=== PATIENT | female | born 1935 | race Caucasian/White ===

== ENCOUNTER 2019-01-30 13:05 | Inpatient (IN) | payer MEDICARE, OTHER ==
[~2019-01-30] VITALS: Ht 160 cm; Wt 62.2 kg
[2019-01-30 13:59] LABS: BASOPHILS % (AUTO) 0 % (0-1); EOSINOPHILS # (AUTO) 0.05 x10^3/uL (0-0.4); EOSINOPHILS % (AUTO) 1 % (1-7); LYMPHOCYTES # (AUTO) 0.39 x10^3/uL (1-3.4); LYMPHOCYTES % (AUTO) 5 % (22-44); MD NO; MEAN CORPUSCULAR HEMOGLOBIN 29.1 pg (27.0-34.8); MEAN CORPUSCULAR HGB CONC 33.3 g/dL (32.4-35.8); MEAN CORPUSCULAR VOLUME 87.4 fL (80-100); MEAN PLATELET VOLUME 9.9 fL (7.4-10.4); MONOCYTES # (AUTO) 0.65 x10^3/uL (0.2-0.8); MONOCYTES % (AUTO) 8 % (2-9); NEUTROPHILS # (AUTO) 6.65 x10^3/uL (1.8-6.8); NEUTROPHILS % (AUTO) 86 % (42-75); PLATELET COUNT 154 x10^3/uL (130-400); RED BLOOD COUNT 3.88 x10^6/uL (3.82-5.3); RED CELL DISTRIBUTION WIDTH 16.4 % (9.6-15.2)
[2019-01-30] MEDS ORDERED: PLEASE ENTER ALLERGIES MC SCH (14:00)
[2019-01-30] MEDS ORDERED: MORPHINE SULFATE 4 MG/ML, 1ML IVPush PRN (14:00)
[2019-01-30] MEDS ORDERED: ONDANSETRON 2MG/ML, 2ML IVPush ONE (14:00)
[2019-01-30 14:06] LABS: ALANINE AMINOTRANSFERASE 47 U/L (12-78); ALBUMIN 3.6 g/dL (3.4-5.0); ANION GAP 9 mmol/L (5-15); CALCIUM 8.3 mg/dL (8.5-10.1); CHLORIDE 107 mmol/L (98-107); CREATININE 1.31 mg/dL (0.55-1.02)
[2019-01-30 14:11] LABS: ALKALINE PHOSPHATASE 101 U/L (45-117); BILIRUBIN,TOTAL 1.2 mg/dL (0.2-1.0); TOTAL PROTEIN 6.7 g/dL (6.4-8.2)
[2019-01-30] MEDS ORDERED: MORPHINE SULFATE 4 MG/ML, 1ML ONE (14:13)
[2019-01-30] MEDS ORDERED: ONDANSETRON 2MG/ML, 2ML ONE (14:13)
[2019-01-30 14:20] LABS: TROPONIN I 0.134 ng/mL (0.000-0.045)
[2019-01-30 14:23] LABS: INTERNATIONAL NORMALIZED RATIO 4.52 (0.93-1.1); PROTHROMBIN TIME 44.8 Seconds (9.6-11.5)
[2019-01-30] MEDS ORDERED: SODIUM CHLORIDE 0.9%, 500ML IVBOLUS ONE (14:30)
--- NOTE | 2019-01-30 14:34 | NUR ---
RETURN TO ROOM FROM ULTRASOUND. XRAY AT BEDSIDE. TO BE MEDICATED FOR PAIN
[2019-01-30] MEDS ORDERED: OMNIPAQUE 350 MG/ML, 100ML BOTTLE ONE (15:04)
[2019-01-30] MEDS ORDERED: FUROSEMIDE 40 MG/4 ML IV ONE (15:30)
[2019-01-30] MEDS ORDERED: CITA20TA6 PO (15:56)
[2019-01-30] MEDS ORDERED: CARB1TAB22 PO (15:56)
[2019-01-30] MEDS ORDERED: METO1TAB31 PO (15:56)
[2019-01-30] MEDS ORDERED: OXYB5TAB PO (15:56)
[2019-01-30] MEDS ORDERED: LEVO75TA5 PO (15:56)
[2019-01-30] MEDS ORDERED: NITR0.6T4 SL (15:56)
[2019-01-30] MEDS ORDERED: WARF7.5T46 PO (15:56)
[2019-01-30] MEDS ORDERED: CITA10TA4 PO (15:56)
[2019-01-30] MEDS ORDERED: ALPR0.254 PO (15:56)
--- NOTE | 2019-01-30 16:03 | NUR ---
SOME IMPROVEMENT IN PAIN SINCE MEDICATED. ONTO BEDPAN BUT UNABLE TO URINATE
[2019-01-30] MEDS ORDERED: ONDANSETRON 2MG/ML, 2ML IVPush PRN (16:30)
[2019-01-30] MEDS ORDERED: hydrALAzine 20 MG/ML, 1ML IVPush PRN (16:30)
[2019-01-30] MEDS ORDERED: TEMAZEPAM 15 MG CAPSULE PO PRN (16:30)
--- NOTE | 2019-01-30 16:30 | NUR ---
Break RN: Pt voided in bedpan. Urine collected & sent. Po fluids provided, daughter & pt updated on room assignment .
[2019-01-30 16:53] LABS: CULTURE INDICATED? YES; MICROSCOPIC INDICATED
--- NOTE | 2019-01-30 16:56 | NUR ---
REPORT TO KYLAH VALERA. PT TO BE TRANSPORTED TO FLOOR
[2019-01-30] MEDS: FUROSEMIDE 20 MG/2 ML IV SCH (17:00)
[2019-01-30] MEDS: PANTOPROZOLE 40MG TABLET PO SCH (20:44)
[2019-01-30 20:50] LABS: TROPONIN I 0.141 ng/mL (0.000-0.045)
[2019-01-30 20:58] VITALS: BP 100/55
[2019-01-31 02:38] LABS: BASOPHILS # (AUTO) 0.02 x10^3/uL (0-0.1); BASOPHILS % (AUTO) 0 % (0-1); EOSINOPHILS # (AUTO) 0.14 x10^3/uL (0-0.4); EOSINOPHILS % (AUTO) 2 % (1-7); LYMPHOCYTES # (AUTO) 0.74 x10^3/uL (1-3.4); LYMPHOCYTES % (AUTO) 10 % (22-44); MD NO; MEAN CORPUSCULAR HEMOGLOBIN 29.1 pg (27.0-34.8); MEAN CORPUSCULAR HGB CONC 33.4 g/dL (32.4-35.8); MEAN CORPUSCULAR VOLUME 87.3 fL (80-100); MEAN PLATELET VOLUME 9.6 fL (7.4-10.4); MONOCYTES # (AUTO) 1.11 x10^3/uL (0.2-0.8); MONOCYTES % (AUTO) 15 % (2-9); NEUTROPHILS # (AUTO) 5.34 x10^3/uL (1.8-6.8); NEUTROPHILS % (AUTO) 73 % (42-75); PLATELET COUNT 151 x10^3/uL (130-400); RED BLOOD COUNT 3.79 x10^6/uL (3.82-5.3); RED CELL DISTRIBUTION WIDTH 16.3 % (9.6-15.2)
[2019-01-31 02:47] LABS: INTERNATIONAL NORMALIZED RATIO 3.56 (0.93-1.1); PROTHROMBIN TIME 35.6 Seconds (9.6-11.5)
[2019-01-31 02:51] LABS: ALBUMIN 3.7 g/dL (3.4-5.0); ANION GAP 7 mmol/L (5-15); CALCIUM 8.3 mg/dL (8.5-10.1); CHLORIDE 108 mmol/L (98-107)
[2019-01-31 02:55] LABS: ALANINE AMINOTRANSFERASE 43 U/L (12-78); ALKALINE PHOSPHATASE 89 U/L (45-117); BILIRUBIN,TOTAL 0.9 mg/dL (0.2-1.0); CREATININE 1.55 mg/dL (0.55-1.02); TOTAL PROTEIN 6.2 g/dL (6.4-8.2)
[2019-01-31 02:57] LABS: TROPONIN I 0.147 ng/mL (0.000-0.045)
[2019-01-31 05:00] VITALS: BP 111/70
[2019-01-31 07:40] VITALS: BP 120/54
[2019-01-31] MEDS: POTASSIUM CHLORIDE 20 MEQ PACKET PO SCH (08:13)
[2019-01-31] MEDS: FUROSEMIDE 20 MG/2 ML IV SCH ×2 (08:13→17:54)
[2019-01-31] MEDS: PANTOPROZOLE 40MG TABLET PO SCH ×2 (08:13→20:57)
[2019-01-31] MEDS: CITALOPRAM 20 MG TABLET PO SCH (08:13)
[2019-01-31] MEDS: LEVOTHYROXINE 75 MCG TABLET PO SCH (08:14)
[2019-01-31] MEDS: CARBIDOPA/LEVODOPA 25 MG/100 MG TABLET PO SCH (08:14)
[2019-01-31] MEDS: OXYBUTYNIN CHLORIDE 5 MG TABLET PO SCH (08:14)
[2019-01-31] MEDS ORDERED: CITALOPRAM 10 MG TABLET PO SCH (09:00)
[2019-01-31] MEDS ORDERED: WARFARIN SODIUM 7.5 MG PO SCH (09:00)
[2019-01-31 13:59] VITALS: BP 101/63
[2019-01-31] MEDS: CEFTRIAXONE PMX 2GM/50ML 50 ML IV SCH (17:53)
[2019-01-31 18:04] VITALS: BP 111/64
[2019-01-31] MEDS: WARFARIN 3 MG TABLET PO-COUM SCH (18:16)
[2019-01-31 18:34] VITALS: BP 101/57
[2019-02-01 01:20] VITALS: BP 106/62
[2019-02-01] MEDS: ACETAMINOPHEN 325 MG TABLET PO PRN ×2 (01:26→16:56)
[2019-02-01 05:38] LABS: INTERNATIONAL NORMALIZED RATIO 3.43 (0.93-1.1); PROTHROMBIN TIME 34.3 Seconds (9.6-11.5)
[2019-02-01] MEDS: POTASSIUM CHLORIDE 20 MEQ PACKET PO SCH (08:57)
[2019-02-01] MEDS: FUROSEMIDE 20 MG/2 ML IV SCH ×2 (08:57→16:56)
[2019-02-01] MEDS: PANTOPROZOLE 40MG TABLET PO SCH ×2 (08:57→20:21)
[2019-02-01] MEDS: OXYBUTYNIN CHLORIDE 5 MG TABLET PO SCH (08:58)
[2019-02-01] MEDS: LEVOTHYROXINE 75 MCG TABLET PO SCH (08:58)
[2019-02-01] MEDS: CARBIDOPA/LEVODOPA 25 MG/100 MG TABLET PO SCH (08:58)
[2019-02-01] MEDS: CITALOPRAM 20 MG TABLET PO SCH (08:58)
[2019-02-01 09:08] VITALS: BP 130/74
[2019-02-01] MEDS ORDERED: GADOBUTROL 7.5 MMOL/7.5 ML PFS ONE (10:14)
[2019-02-01 13:53] VITALS: BP 105/61
[2019-02-01] MEDS: CEFTRIAXONE PMX 2GM/50ML 50 ML IV SCH (16:57)
[2019-02-01] MEDS: WARFARIN 3 MG TABLET PO-COUM SCH (18:15)
[2019-02-01 18:39] VITALS: BP 113/67
[2019-02-01 18:42] VITALS: BP 98/58
[2019-02-02 02:59] VITALS: BP 118/65
[2019-02-02 06:06] LABS: INTERNATIONAL NORMALIZED RATIO 4.18 (0.93-1.1); PROTHROMBIN TIME 41.5 Seconds (9.6-11.5)
[2019-02-02 09:10] VITALS: BP 107/60
[2019-02-02] MEDS: CITALOPRAM 20 MG TABLET PO SCH (09:13)
[2019-02-02] MEDS: LEVOTHYROXINE 75 MCG TABLET PO SCH (09:13)
[2019-02-02] MEDS: PANTOPROZOLE 40MG TABLET PO SCH ×2 (09:13→20:17)
[2019-02-02] MEDS: OXYBUTYNIN CHLORIDE 5 MG TABLET PO SCH (09:14)
[2019-02-02] MEDS: CARBIDOPA/LEVODOPA 25 MG/100 MG TABLET PO SCH (09:14)
[2019-02-02] MEDS ORDERED: REGADENOSON 0.4 MG/5 ML SYRINGE ONE (10:03)
[2019-02-02 12:27] VITALS: BP 109/66
[2019-02-02] MEDS: FUROSEMIDE 20 MG/2 ML IV SCH ×2 (13:08→17:33)
[2019-02-02] MEDS: POTASSIUM CHLORIDE 20 MEQ PACKET PO SCH (13:08)
[2019-02-02] MEDS: WARFARIN 3 MG TABLET PO-COUM SCH (16:52)
[2019-02-02] MEDS: CEFTRIAXONE PMX 2GM/50ML 50 ML IV SCH (17:32)
[2019-02-02 17:35] VITALS: BP 122/71
[2019-02-02 19:06] VITALS: BP 111/64
[2019-02-03 00:15] VITALS: BP 106/63
[2019-02-03 05:18] LABS: INTERNATIONAL NORMALIZED RATIO 4.01 (0.93-1.1); PROTHROMBIN TIME 39.9 Seconds (9.6-11.5)
[2019-02-03 05:24] LABS: ANION GAP 5 mmol/L (5-15); CALCIUM 8.3 mg/dL (8.5-10.1); CHLORIDE 101 mmol/L (98-107)
[2019-02-03 05:25] LABS: CREATININE 0.85 mg/dL (0.55-1.02)
[2019-02-03 05:30] LABS: BASOPHILS # (AUTO) 0.02 x10^3/uL (0-0.1); BASOPHILS % (AUTO) 1 % (0-1); EOSINOPHILS # (AUTO) 0.18 x10^3/uL (0-0.4); EOSINOPHILS % (AUTO) 5 % (1-7); LYMPHOCYTES # (AUTO) 0.66 x10^3/uL (1-3.4); LYMPHOCYTES % (AUTO) 18 % (22-44); MD NO; MEAN CORPUSCULAR HEMOGLOBIN 28.3 pg (27.0-34.8); MEAN CORPUSCULAR HGB CONC 32.1 g/dL (32.4-35.8); MEAN CORPUSCULAR VOLUME 88.1 fL (80-100); MEAN PLATELET VOLUME 9.9 fL (7.4-10.4); MONOCYTES # (AUTO) 0.54 x10^3/uL (0.2-0.8); MONOCYTES % (AUTO) 14 % (2-9); NEUTROPHILS # (AUTO) 2.37 x10^3/uL (1.8-6.8); NEUTROPHILS % (AUTO) 63 % (42-75); PLATELET COUNT 133 x10^3/uL (130-400); RED BLOOD COUNT 3.45 x10^6/uL (3.82-5.3); RED CELL DISTRIBUTION WIDTH 16.8 % (9.6-15.2)
[2019-02-03 08:53] VITALS: BP 116/72
[2019-02-03] MEDS: PANTOPROZOLE 40MG TABLET PO SCH (09:06)
[2019-02-03] MEDS: CITALOPRAM 20 MG TABLET PO SCH (09:06)
[2019-02-03] MEDS: LEVOTHYROXINE 75 MCG TABLET PO SCH (09:06)
[2019-02-03] MEDS: OXYBUTYNIN CHLORIDE 5 MG TABLET PO SCH (09:06)
[2019-02-03] MEDS: CARBIDOPA/LEVODOPA 25 MG/100 MG TABLET PO SCH (09:06)
[2019-02-03] MEDS: FUROSEMIDE 20 MG/2 ML IV SCH (09:06)
[2019-02-03] MEDS: POTASSIUM CHLORIDE 20 MEQ PACKET PO SCH (09:06)
[2019-02-03] MEDS ORDERED: PANT40TA5 PO (09:39)
[2019-02-03] MEDS ORDERED: ACET325T14 PO (09:39)
[2019-02-03] MEDS ORDERED: WARF3TAB PO-COUM (09:39)
[2019-02-03] MEDS ORDERED: FURO-93 PO (09:39)
[2019-02-03 12:35] VITALS: BP 94/61
== END 2019-02-03 15:31 | DRG 175 ==
LOC: ED 13:53 → SUATTDRO 15:41 → EDIP 16:24 → 5SO 17:12
PROVIDERS: ADMIT Internal Medicine; ATTEND Internal Medicine
DX: I26.99 Other pulmonary embolism without acute cor pulmonale (principal); I82.0 Budd-Chiari syndrome; I82.220 Acute embolism and thrombosis of inferior vena cava; I13.0 Hypertensive heart and chronic kidney disease with heart failure and stage 1 through stage 4 chronic kidney disease, or unspecified chronic kidney disease; I31.3 Pericardial effusion (noninflammatory); N39.0 Urinary tract infection, site not specified; B96.1 Klebsiella pneumoniae [K. pneumoniae] as the cause of diseases classified elsewhere; E89.0 Postprocedural hypothyroidism; F32.9 Major depressive disorder, single episode, unspecified; G20 Parkinson's disease; I08.1 Rheumatic disorders of both mitral and tricuspid valves; I45.81 Long QT syndrome; I48.91 Unspecified atrial fibrillation; I50.811 Acute right heart failure; N18.3 Chronic kidney disease, stage 3 (moderate); R32 Unspecified urinary incontinence; Z79.01 Long term (current) use of anticoagulants
CPT/HCPCS: 36415; 70553; 71045; 71275; 74177; 76700; 78452; 80048; 80053; 81001; 83690; 83735; 83880; 84100; 84443; 84484; 85025; 85610; 87040; 87077; 87086; 87186; 93005; 93017; 93306; 93970; 96374; 96375; 99285; A9585; G0378; J0696; J2405; J2785; Q9967; A9502; C9898; J1940; J7040

== ENCOUNTER 2019-02-24 02:12 | Inpatient (IN) | payer MEDICARE ==
[~2019-02-24] VITALS: Ht 160 cm; Wt 58.7 kg
[~2019-02-24 02:12] MED LIST: ACET325T14 PO; ALPR0.254 PO; CARB1TAB22 PO; CITA10TA4 PO; CITA20TA6 PO; FURO-93 PO; LEVO75TA5 PO; METO1TAB31 PO; NITR0.6T4 SL; OXYB5TAB PO; PANT40TA5 PO; WARF3TAB PO-COUM; WARF7.5T46 PO
--- NOTE | 2019-02-24 02:45 | NUR ---
BIBA. PT C/O SOB WITH COUGH AND ANXIETY. SPO2 96% WITH 5L MANUFACTURING AREA MANAGER. PT'S AOX4. RESPS EVEN AND UNLABORED. PT USING 3L/MIN OXY AT HOME. SINUS TACHY ON HOTBED LEVER OPERATOR RATE 100'S AT THIS TIME. EDMD AT BEDSIDE TO ASSESS. ALL MONITORS IN PLACE. CALL LIGHT WITHIN REACH. AWAITING ORDERS.
[2019-02-24] MEDS ORDERED: ASPIRIN 81 MG TABLET CHEW ONE (02:56)
[2019-02-24] MEDS ORDERED: SODIUM CHLORIDE FLUSH 10ML SYR IVF ONE (03:00)
[2019-02-24] MEDS ORDERED: ASPIRIN 81 MG TABLET CHEW PO ONE (03:00)
--- NOTE | 2019-02-24 03:21 | NUR ---
PT MEDICATED PER EMAR. PT TOLERATED WELL. PT'S AOX4. RESPS EVEN AND UNLABORED.
[2019-02-24 03:30] LABS: MEAN CORPUSCULAR HEMOGLOBIN 29.2 pg (27.0-34.8); MEAN CORPUSCULAR HGB CONC 33.5 g/dL (32.4-35.8); MEAN CORPUSCULAR VOLUME 87.2 fL (80-100); MEAN PLATELET VOLUME 9.1 fL (7.4-10.4); PLATELET COUNT 157 x10^3/uL (130-400); RED BLOOD COUNT 3.31 x10^6/uL (3.82-5.3); RED CELL DISTRIBUTION WIDTH 17.3 % (9.6-15.2)
[2019-02-24 03:32] LABS: ALANINE AMINOTRANSFERASE 20 U/L (12-78); ALBUMIN 3.5 g/dL (3.4-5.0); ANION GAP 6 mmol/L (5-15); CALCIUM 8.4 mg/dL (8.5-10.1); CHLORIDE 95 mmol/L (98-107)
[2019-02-24 03:37] LABS: ALKALINE PHOSPHATASE 65 U/L (45-117); BILIRUBIN,TOTAL 0.6 mg/dL (0.2-1.0); CREATININE 0.93 mg/dL (0.55-1.02); TOTAL PROTEIN 6.4 g/dL (6.4-8.2)
[2019-02-24 03:43] LABS: TROPONIN I 0.203 ng/mL (0.000-0.045)
[2019-02-24 03:55] LABS: BASOPHILS % (AUTO) 0 % (0-1); EOSINOPHILS # (AUTO) 0.25 x10^3/uL (0-0.4); EOSINOPHILS % (AUTO) 6 % (1-7); LYMPHOCYTES # (AUTO) 0.46 x10^3/uL (1-3.4); LYMPHOCYTES % (AUTO) 11 % (22-44); MD SCAN; MONOCYTES # (AUTO) 0.48 x10^3/uL (0.2-0.8); MONOCYTES % (AUTO) 11 % (2-9); NEUTROPHILS # (AUTO) 3.03 x10^3/uL (1.8-6.8); NEUTROPHILS % (AUTO) 72 % (42-75)
[2019-02-24] MEDS ORDERED: FUROSEMIDE 20 MG/2 ML IV ONE (04:00)
[2019-02-24] MEDS ORDERED: FUROSEMIDE 20 MG/2 ML ONE (04:07)
--- NOTE | 2019-02-24 04:15 | NUR ---
PT MEDICATED PER EMAR. PT TOLERATED WELL. EDMD AT BEDSIDE TO EXPLAIN ALL RESULTS AT THIS TIME.
--- NOTE | 2019-02-24 05:09 | NUR ---
PT PROVIDED BEDSIDE COMMODO AT THIS TIME.
[2019-02-24 05:24] LABS: FREE T4 (FREE THYROXINE) 1.31 ng/dL (0.76-1.46)
[2019-02-24 05:58] LABS: INTERNATIONAL NORMALIZED RATIO 1.38 (0.93-1.1); PROTHROMBIN TIME 14.3 Seconds (9.6-11.5)
--- NOTE | 2019-02-24 06:10 | NUR ---
PT SLEEPING IN [facility]. RESPS EVEN AND UNLABORED. ALL MONITORS IN PLACE. CALL LIGHT WITHIN REACH. AWAITING ADMIT AT THIS TIME.
--- NOTE | 2019-02-24 06:39 | NUR ---
PT IS URINATING IN BEDSIDE COMMODO AT THIS TIME. PT'S AOX4. RESPS EVEN AND UNLABORED.
--- NOTE | 2019-02-24 06:54 | NUR ---
REPORT GIVEN TO HERMELINDA VALERA.
--- NOTE | 2019-02-24 06:59 | NUR ---
REPORT FROM STALIN VALERA. PT IS RESTING IN BED WITH EYES CLOSED, RESPIRATIONS EQUAL AND NON LABORED. NAD. FAMILY MEMBER AT BEDSIDE.
--- NOTE | 2019-02-24 07:29 | NUR ---
REPORT GIVEN TO LEE VALERA.
[2019-02-24] MEDS: LEVOTHYROXINE 75 MCG TABLET PO SCH (09:30)
[2019-02-24] MEDS: POTASSIUM CHLORIDE 20 MEQ TAB.ER.PRT PO SCH (09:30)
[2019-02-24] MEDS ORDERED: PANTOPROZOLE 40MG TABLET PO SCH (09:30)
[2019-02-24] MEDS: METOPROLOL TARTRATE 25 MG TABLET PO SCH ×2 (09:30→20:38)
[2019-02-24] MEDS ORDERED: ONDANSETRON 2MG/ML, 2ML IV PRN (09:30)
[2019-02-24] MEDS: CARBIDOPA/LEVODOPA 25 MG/100 MG TABLET PO SCH (09:30)
[2019-02-24] MEDS: CITALOPRAM 20 MG TABLET PO SCH (09:30)
[2019-02-24] MEDS: CITALOPRAM 10 MG TABLET PO SCH (09:30)
[2019-02-24] MEDS ORDERED: NITROGLYCERIN 0.4 MG BOTTLE (25 TABS) SL PRN (09:30)
[2019-02-24] MEDS ORDERED: NITROGLYCERIN 0.4 MG SL PRN (09:30)
[2019-02-24] MEDS ORDERED: ALBUTEROL SULFATE 2.5 MG/3 ML ONE (10:51)
[2019-02-24] MEDS: ALBUTEROL SULFATE 2.5 MG/3 ML NPPB SCH (11:00)
[2019-02-24] MEDS: OXYBUTYNIN CHLORIDE 5 MG TABLET PO SCH (11:00)
[2019-02-24 12:10] LABS: TROPONIN I 0.216 ng/mL (0.000-0.045)
[2019-02-24] MEDS ORDERED: NITROGLYCERIN SINGLE TAB 0.4 MG SL PRN (12:30)
[2019-02-24 13:16] VITALS: BP 102/66
[2019-02-24 14:00] VITALS: BP 99/69
[2019-02-24 14:20] LABS: TROPONIN I 0.183 ng/mL (0.000-0.045)
[2019-02-24] MEDS: FUROSEMIDE 40 MG/4 ML IV SCH (16:47)
[2019-02-24] MEDS ORDERED: METOPROLOL 1 MG/ML, 5ML IVPush ONE (17:00)
[2019-02-24] MEDS ORDERED: WARFARIN 10 MG TABLET PO-COUM ONE (18:00)
[2019-02-24] MEDS ORDERED: WARFARIN 3 MG TABLET PO-COUM SCH (18:00)
[2019-02-24] MEDS ORDERED: WARFARIN 5 MG TABLET PO-COUM ONE (18:37)
[2019-02-24 20:00] VITALS: BP 100/60
[2019-02-24] MEDS: PANTOPRAZOLE GRAN. PKT 40 MG PO SCH (20:40)
[2019-02-24] MEDS: ENOXAPARIN 60 MG/0.6 ML SQ SCH (20:40)
[2019-02-24] MEDS: ACETAMINOPHEN 325 MG TABLET PO PRN (21:17)
[2019-02-25 01:56] VITALS: BP 98/60
[2019-02-25 05:18] LABS: BASOPHILS # (AUTO) 0.02 x10^3/uL (0-0.1); BASOPHILS % (AUTO) 1 % (0-1); EOSINOPHILS # (AUTO) 0.36 x10^3/uL (0-0.4); EOSINOPHILS % (AUTO) 10 % (1-7); LYMPHOCYTES # (AUTO) 0.91 x10^3/uL (1-3.4); LYMPHOCYTES % (AUTO) 24 % (22-44); MD NO; MEAN CORPUSCULAR HEMOGLOBIN 29.5 pg (27.0-34.8); MEAN CORPUSCULAR HGB CONC 33.8 g/dL (32.4-35.8); MEAN CORPUSCULAR VOLUME 87.2 fL (80-100); MEAN PLATELET VOLUME 9.6 fL (7.4-10.4); MONOCYTES # (AUTO) 0.51 x10^3/uL (0.2-0.8); MONOCYTES % (AUTO) 13 % (2-9); NEUTROPHILS # (AUTO) 2.03 x10^3/uL (1.8-6.8); NEUTROPHILS % (AUTO) 53 % (42-75); PLATELET COUNT 158 x10^3/uL (130-400); RED BLOOD COUNT 3.31 x10^6/uL (3.82-5.3); RED CELL DISTRIBUTION WIDTH 17.8 % (9.6-15.2)
[2019-02-25 05:24] LABS: ANION GAP 4 mmol/L (5-15); CALCIUM 8.8 mg/dL (8.5-10.1); CHLORIDE 94 mmol/L (98-107)
[2019-02-25 05:26] LABS: CREATININE 0.84 mg/dL (0.55-1.02)
[2019-02-25] MEDS: METOPROLOL TARTRATE 25 MG TABLET PO SCH (06:00)
[2019-02-25 07:20] VITALS: BP 99/62
[2019-02-25] MEDS ORDERED: NITROGLYCERIN 0.4 MG BOTTLE (25 TABS) SL PRN (08:00)
[2019-02-25] MEDS ORDERED: NITROGLYCERIN 0.4 MG/SPRAY SL PRN (08:00)
[2019-02-25] MEDS: ALBUTEROL SULFATE 2.5 MG/3 ML NPPB SCH ×2 (08:05→21:00)
[2019-02-25 08:34] LABS: TROPONIN I 0.207 ng/mL (0.000-0.045)
[2019-02-25] MEDS: CARBIDOPA/LEVODOPA 25 MG/100 MG TABLET PO SCH (09:24)
[2019-02-25] MEDS: ENOXAPARIN 60 MG/0.6 ML SQ SCH ×2 (09:25→21:16)
[2019-02-25] MEDS: LEVOTHYROXINE 75 MCG TABLET PO SCH (09:26)
[2019-02-25] MEDS: POTASSIUM CHLORIDE 20 MEQ TAB.ER.PRT PO SCH (09:27)
[2019-02-25] MEDS: PANTOPRAZOLE GRAN. PKT 40 MG PO SCH ×2 (09:27→20:05)
[2019-02-25] MEDS: CITALOPRAM 20 MG TABLET PO SCH (09:27)
[2019-02-25] MEDS: FUROSEMIDE 40 MG/4 ML IV SCH ×2 (09:27→17:34)
[2019-02-25] MEDS: CITALOPRAM 10 MG TABLET PO SCH (09:27)
[2019-02-25] MEDS: OXYBUTYNIN CHLORIDE 5 MG TABLET PO SCH (09:27)
[2019-02-25 09:28] VITALS: BP 100/68
[2019-02-25] MEDS ORDERED: METOPROLOL TARTRATE 25 MG TABLET PO ONE (09:30)
--- NOTE | 2019-02-25 11:50 | NUR ---
REC: NPO except crushed meds and ice chips pending MBS Addendum: 02/25/19 at 1150 by Hillary LUNA Amended: Links added.
[2019-02-25] MEDS: METOPROLOL 1 MG/ML, 5ML IVPush SCH ×3 (11:52→23:54)
[2019-02-25 12:05] VITALS: BP 116/83
[2019-02-25 14:10] LABS: INTERNATIONAL NORMALIZED RATIO 1.46 (0.93-1.1); PROTHROMBIN TIME 15.1 Seconds (9.6-11.5)
[2019-02-25] MEDS ORDERED: WARFARIN 10 MG TABLET PO-COUM ONE (18:00)
[2019-02-25 19:02] VITALS: BP 103/65
[2019-02-26 00:02] VITALS: BP 107/65
[2019-02-26 05:32] LABS: INTERNATIONAL NORMALIZED RATIO 1.46 (0.93-1.1); PROTHROMBIN TIME 15.1 Seconds (9.6-11.5)
[2019-02-26 05:35] LABS: ANION GAP 6 mmol/L (5-15); CALCIUM 8.3 mg/dL (8.5-10.1); CHLORIDE 95 mmol/L (98-107); CREATININE 0.69 mg/dL (0.55-1.02); MEAN CORPUSCULAR HEMOGLOBIN 29.1 pg (27.0-34.8); MEAN CORPUSCULAR VOLUME 88.1 fL (80-100); MEAN PLATELET VOLUME 9.5 fL (7.4-10.4); PLATELET COUNT 145 x10^3/uL (130-400); RED BLOOD COUNT 3.16 x10^6/uL (3.82-5.3); RED CELL DISTRIBUTION WIDTH 17.5 % (9.6-15.2)
[2019-02-26] MEDS: METOPROLOL 1 MG/ML, 5ML IVPush SCH ×3 (06:06→18:38)
[2019-02-26 06:24] LABS: MD YES
[2019-02-26 06:25] LABS: <PLATELET ESTIMATE> ADEQUATE; <PLT MORPHOLOGY> NORMAL PLT MORPH; ANISOCYTOSIS 1+; BASOS#(MANUAL) 0.08 x10^3/uL (0-0.1); BASOS% (MANUAL) 2 % (0-1); EOS#(MANUAL) 0.15 x10^3/uL (0.0-0.4); EOS% (MANUAL) 4 % (1-7); LYMPH#(MANUAL) 0.46 x10^3/uL (1-3.4); LYMPHS% (MANUAL) 12 % (22-44); MONOS#(MANUAL) 0.08 x10^3/uL (0.3-2.7); MONOS% (MANUAL) 2 % (2-9); SEG#(MANUAL) 3.04 x10^3/uL (1.8-6.8); SEGS% (MANUAL) 80 % (42-75)
[2019-02-26] MEDS: ALBUTEROL SULFATE 2.5 MG/3 ML NPPB SCH ×2 (07:15→20:35)
[2019-02-26 07:20] VITALS: BP 108/65
[2019-02-26] MEDS: FUROSEMIDE 40 MG/4 ML IV SCH (08:15)
[2019-02-26] MEDS: ENOXAPARIN 60 MG/0.6 ML SQ SCH ×2 (08:16→21:49)
[2019-02-26] MEDS: CITALOPRAM 20 MG TABLET PO SCH (08:21)
[2019-02-26] MEDS: CITALOPRAM 10 MG TABLET PO SCH (08:21)
[2019-02-26] MEDS: LEVOTHYROXINE 75 MCG TABLET PO SCH (08:22)
[2019-02-26] MEDS: OXYBUTYNIN CHLORIDE 5 MG TABLET PO SCH (08:22)
[2019-02-26] MEDS: CARBIDOPA/LEVODOPA 25 MG/100 MG TABLET PO SCH (08:22)
[2019-02-26] MEDS: PANTOPRAZOLE GRAN. PKT 40 MG PO SCH ×2 (08:22→21:49)
[2019-02-26] MEDS: POTASSIUM CHLORIDE 20 MEQ TAB.ER.PRT PO SCH (08:22)
[2019-02-26] MEDS ORDERED: POTASSIUM CHLORIDE 40 MEQ in SODIUM CHLORIDE 0.9% 500 ML IV ONE (09:00)
[2019-02-26] MEDS ORDERED: ACETAMINOPHEN 1,000 MG/100 ML IV IVPB ONE (09:00)
[2019-02-26] MEDS ORDERED: ACETAMINOPHEN 120 MG SUPP PR PRN (09:00)
[2019-02-26] MEDS ORDERED: ACETAMINOPHEN 650 MG SUPP PR PRN (09:30)
[2019-02-26 12:09] VITALS: BP 108/62
[2019-02-26] MEDS ORDERED: MORPHINE SULFATE 4 MG/ML, 1ML IVPush PRN (15:00)
--- NOTE | 2019-02-26 17:41 | NUR ---
REC PUREE/NTL; swallow precaution sheet posted at bedside Addendum: 02/26/19 at [address] Amended: Links added.
[2019-02-26] MEDS ORDERED: WARFARIN 10 MG TABLET PO-COUM ONE (18:00)
[2019-02-26 19:44] VITALS: BP 108/68
[2019-02-27] MEDS: METOPROLOL 1 MG/ML, 5ML IVPush SCH ×2 (00:04→05:41)
[2019-02-27 00:07] VITALS: BP 109/67
[2019-02-27 05:17] LABS: INTERNATIONAL NORMALIZED RATIO 1.69 (0.93-1.1); PROTHROMBIN TIME 17.4 Seconds (9.6-11.5)
[2019-02-27 05:25] LABS: CHLORIDE 96 mmol/L (98-107)
[2019-02-27 05:29] LABS: ANION GAP 5 mmol/L (5-15); CALCIUM 8.6 mg/dL (8.5-10.1); CREATININE 0.72 mg/dL (0.55-1.02)
[2019-02-27 08:00] VITALS: BP 93/55
[2019-02-27] MEDS: ALBUTEROL SULFATE 2.5 MG/3 ML NPPB SCH ×2 (08:27→21:15)
[2019-02-27] MEDS ORDERED: FUROSEMIDE 20 MG/2 ML IV SCH (09:00)
[2019-02-27] MEDS ORDERED: POTASSIUM CHLORIDE 40 MEQ in SODIUM CHLORIDE 0.9% 500 ML IV ONE (09:00)
[2019-02-27] MEDS: PANTOPRAZOLE GRAN. PKT 40 MG PO SCH ×2 (09:57→21:20)
[2019-02-27] MEDS: CITALOPRAM 10 MG TABLET PO SCH (09:58)
[2019-02-27] MEDS: LEVOTHYROXINE 75 MCG TABLET PO SCH (09:58)
[2019-02-27] MEDS: ENOXAPARIN 60 MG/0.6 ML SQ SCH ×2 (09:58→21:22)
[2019-02-27] MEDS: CARBIDOPA/LEVODOPA 25 MG/100 MG TABLET PO SCH (09:58)
[2019-02-27] MEDS: OXYBUTYNIN CHLORIDE 5 MG TABLET PO SCH (09:59)
[2019-02-27] MEDS: POTASSIUM CHLORIDE 20 MEQ TAB.ER.PRT PO SCH (10:04)
[2019-02-27 11:38] VITALS: BP 98/59
[2019-02-27] MEDS: METOPROLOL TARTRATE 25 MG TABLET PO SCH ×2 (11:41→17:59)
[2019-02-27 12:26] VITALS: BP 95/60
[2019-02-27] MEDS: ACETAMINOPHEN 325 MG TABLET PO PRN (15:26)
[2019-02-27] MEDS ORDERED: WARFARIN 7.5 MG TABLET PO-COUM ONE (18:00)
[2019-02-27 18:53] VITALS: BP 106/66
[2019-02-28 03:54] VITALS: BP 99/63
[2019-02-28 05:21] LABS: BASOPHILS # (AUTO) 0.01 x10^3/uL (0-0.1); BASOPHILS % (AUTO) 0 % (0-1); EOSINOPHILS # (AUTO) 0.31 x10^3/uL (0-0.4); EOSINOPHILS % (AUTO) 8 % (1-7); LYMPHOCYTES # (AUTO) 0.67 x10^3/uL (1-3.4); LYMPHOCYTES % (AUTO) 18 % (22-44); MD NO; MEAN CORPUSCULAR HEMOGLOBIN 29.2 pg (27.0-34.8); MEAN CORPUSCULAR HGB CONC 32.8 g/dL (32.4-35.8); MEAN CORPUSCULAR VOLUME 88.9 fL (80-100); MEAN PLATELET VOLUME 9.5 fL (7.4-10.4); MONOCYTES # (AUTO) 0.48 x10^3/uL (0.2-0.8); MONOCYTES % (AUTO) 13 % (2-9); NEUTROPHILS # (AUTO) 2.28 x10^3/uL (1.8-6.8); NEUTROPHILS % (AUTO) 61 % (42-75); PLATELET COUNT 143 x10^3/uL (130-400); RED BLOOD COUNT 3.28 x10^6/uL (3.82-5.3); RED CELL DISTRIBUTION WIDTH 17.8 % (9.6-15.2)
[2019-02-28] MEDS: METOPROLOL TARTRATE 25 MG TABLET PO SCH (05:26)
[2019-02-28 05:35] LABS: ANION GAP 4 mmol/L (5-15); CALCIUM 9.3 mg/dL (8.5-10.1); CHLORIDE 97 mmol/L (98-107)
[2019-02-28 05:41] LABS: INTERNATIONAL NORMALIZED RATIO 2.69 (0.93-1.1); PROTHROMBIN TIME 27.2 Seconds (9.6-11.5)
[2019-02-28 06:41] VITALS: BP 96/62
[2019-02-28] MEDS ORDERED: FUROSEMIDE 20 MG TABLET PO SCH (07:30)
[2019-02-28] MEDS: OXYBUTYNIN CHLORIDE 5 MG TABLET PO SCH (09:14)
[2019-02-28] MEDS: CARBIDOPA/LEVODOPA 25 MG/100 MG TABLET PO SCH (09:14)
[2019-02-28] MEDS: ENOXAPARIN 60 MG/0.6 ML SQ SCH (09:14)
[2019-02-28] MEDS: POTASSIUM CHLORIDE 20 MEQ TAB.ER.PRT PO SCH (09:14)
[2019-02-28] MEDS: LEVOTHYROXINE 75 MCG TABLET PO SCH (09:15)
[2019-02-28] MEDS: CITALOPRAM 10 MG TABLET PO SCH (09:15)
[2019-02-28] MEDS: ALBUTEROL SULFATE 2.5 MG/3 ML NPPB SCH (09:55)
[2019-02-28] MEDS: PANTOPRAZOLE GRAN. PKT 40 MG PO SCH (10:28)
[2019-02-28 14:29] VITALS: BP 99/57
[2019-02-28] MEDS ORDERED: WARFARIN 2.5 MG TABLET PO-COUM ONE (18:00)
== END 2019-02-28 16:00 | disposition home health service (06) | DRG 175 ==
LOC: ED 03:47 → EDIP 03:52 → 5SO 07:57 → DCLOUNGE 02-28 15:32
PROVIDERS: ADMIT Family Medicine; ATTEND Family Medicine
PROC: BD11YZZ Fluoroscopy of Esophagus using Other Contrast (ICD-10-PCS; principal; 2019-02-26)
DX: I26.99 Other pulmonary embolism without acute cor pulmonale (principal); I82.220 Acute embolism and thrombosis of inferior vena cava; I50.43 Acute on chronic combined systolic (congestive) and diastolic (congestive) heart failure; I31.3 Pericardial effusion (noninflammatory); I13.0 Hypertensive heart and chronic kidney disease with heart failure and stage 1 through stage 4 chronic kidney disease, or unspecified chronic kidney disease; I24.8 Other forms of acute ischemic heart disease; I48.91 Unspecified atrial fibrillation; Z79.01 Long term (current) use of anticoagulants; N18.3 Chronic kidney disease, stage 3 (moderate); G20 Parkinson's disease; F32.9 Major depressive disorder, single episode, unspecified; K22.5 Diverticulum of esophagus, acquired; E03.9 Hypothyroidism, unspecified; R32 Unspecified urinary incontinence; R13.12 Dysphagia, oropharyngeal phase; E87.6 Hypokalemia
CPT/HCPCS: 36415; 71045; 74220; 74230; 80048; 80053; 82962; 83735; 83880; 84439; 84443; 84484; 85025; 85610; 85730; 93005; 94640; 96374; G0378; J1650; J1940; J3480; J7613; J7040

== ENCOUNTER 2019-03-06 16:38 | Inpatient (IN) | payer MEDICARE ==
[~2019-03-06] VITALS: Ht 160 cm; Wt 57.4 kg
[2019-03-06] MEDS ORDERED: ONDANSETRON 2MG/ML, 2ML ONE (17:30)
[2019-03-06] MEDS ORDERED: ASPIRIN 81 MG TABLET CHEW PO ONE (17:30)
[2019-03-06] MEDS ORDERED: MORPHINE SULFATE 4 MG/ML, 1ML IVPush PRN (17:30)
[2019-03-06] MEDS ORDERED: MORPHINE SULFATE 4 MG/ML, 1ML ONE (17:30)
[2019-03-06] MEDS ORDERED: ONDANSETRON 2MG/ML, 2ML IVPush ONE (17:30)
[2019-03-06 17:32] LABS: BASOPHILS # (AUTO) 0.02 x10^3/uL (0-0.1); BASOPHILS % (AUTO) 1 % (0-1); EOSINOPHILS # (AUTO) 0.26 x10^3/uL (0-0.4); EOSINOPHILS % (AUTO) 7 % (1-7); LYMPHOCYTES # (AUTO) 0.61 x10^3/uL (1-3.4); LYMPHOCYTES % (AUTO) 16 % (22-44); MD NO; MEAN CORPUSCULAR HEMOGLOBIN 28.1 pg (27.0-34.8); MEAN CORPUSCULAR HGB CONC 31.7 g/dL (32.4-35.8); MEAN CORPUSCULAR VOLUME 88.7 fL (80-100); MEAN PLATELET VOLUME 9.6 fL (7.4-10.4); MONOCYTES # (AUTO) 0.48 x10^3/uL (0.2-0.8); MONOCYTES % (AUTO) 13 % (2-9); NEUTROPHILS # (AUTO) 2.35 x10^3/uL (1.8-6.8); NEUTROPHILS % (AUTO) 63 % (42-75); PLATELET COUNT 146 x10^3/uL (130-400); RED BLOOD COUNT 3.05 x10^6/uL (3.82-5.3); RED CELL DISTRIBUTION WIDTH 17.5 % (9.6-15.2)
[2019-03-06 17:41] LABS: INTERNATIONAL NORMALIZED RATIO 1.77 (0.93-1.1); PROTHROMBIN TIME 18.2 Seconds (9.6-11.5)
[2019-03-06 17:45] LABS: ALBUMIN 3.4 g/dL (3.4-5.0); ANION GAP 7 mmol/L (5-15); CALCIUM 8.7 mg/dL (8.5-10.1); CHLORIDE 99 mmol/L (98-107)
[2019-03-06 17:52] LABS: ALKALINE PHOSPHATASE 62 U/L (45-117); BILIRUBIN,TOTAL 0.8 mg/dL (0.2-1.0); CREATININE 0.68 mg/dL (0.55-1.02); TOTAL PROTEIN 6.1 g/dL (6.4-8.2)
[2019-03-06 18:05] LABS: ALANINE AMINOTRANSFERASE 12 U/L (12-78)
[2019-03-06] MEDS ORDERED: FUROSEMIDE 20 MG/2 ML IV ONE (19:00)
--- NOTE | 2019-03-06 19:17 | NUR ---
Provided bedside report to MORAIMA Dias. All questions answered. MORAIMA Dias to assume care of pt.
--- NOTE | 2019-03-06 19:30 | NUR ---
REPORT GIVEN TO MORAIMA SMITH
[2019-03-06] MEDS ORDERED: NITROGLYCERIN 0.4 MG BOTTLE (25 TABS) SL PRN (20:00)
[2019-03-06] MEDS ORDERED: ACETAMINOPHEN 325 MG TABLET PO PRN (20:00)
[2019-03-06] MEDS ORDERED: morphine SULFATE 10 MG/ML, 1ML IVPush PRN (20:00)
[2019-03-06] MEDS ORDERED: DILTIAZEM 5 MG/ML, 5ML IVPush PRN (20:00)
[2019-03-06] MEDS ORDERED: ENALAPRILAT 1.25 MG/ML, 2ML IVPush PRN (20:00)
[2019-03-06 20:35] VITALS: BP 104/67
[2019-03-06] MEDS ORDERED: WARFARIN 7.5 MG TABLET PO-COUM ONE (21:00)
[2019-03-06] MEDS ORDERED: WARFARIN 3 MG TABLET PO-COUM ONE (21:00)
[2019-03-06] MEDS ORDERED: POTASSIUM CHLORIDE 40 MEQ in SODIUM CHLORIDE 0.9% 500 ML IV ONE (21:30)
[2019-03-06] MEDS: PANTOPROZOLE 40MG TABLET PO SCH (22:13)
[2019-03-06] MEDS: FUROSEMIDE 20 MG TABLET PO SCH (22:13)
[2019-03-06] MEDS ORDERED: POTA20TA14 PO (23:45)
[2019-03-06] MEDS ORDERED: MEGE400O2 PO (23:45)
[2019-03-07 01:05] VITALS: BP 113/72
[2019-03-07 02:42] LABS: BASOPHILS # (AUTO) 0.03 x10^3/uL (0-0.1); BASOPHILS % (AUTO) 1 % (0-1); EOSINOPHILS # (AUTO) 0.43 x10^3/uL (0-0.4); EOSINOPHILS % (AUTO) 12 % (1-7); LYMPHOCYTES # (AUTO) 0.69 x10^3/uL (1-3.4); LYMPHOCYTES % (AUTO) 19 % (22-44); MD NO; MEAN CORPUSCULAR HEMOGLOBIN 27.4 pg (27.0-34.8); MEAN CORPUSCULAR HGB CONC 31.1 g/dL (32.4-35.8); MEAN CORPUSCULAR VOLUME 88.2 fL (80-100); MONOCYTES % (AUTO) 14 % (2-9); NEUTROPHILS # (AUTO) 2.03 x10^3/uL (1.8-6.8); NEUTROPHILS % (AUTO) 55 % (42-75); PLATELET COUNT 148 x10^3/uL (130-400); RED CELL DISTRIBUTION WIDTH 17.4 % (9.6-15.2)
[2019-03-07 02:46] LABS: INTERNATIONAL NORMALIZED RATIO 1.62 (0.93-1.1); PROTHROMBIN TIME 16.7 Seconds (9.6-11.5)
[2019-03-07 02:49] LABS: ANION GAP 3 mmol/L (5-15); CALCIUM 8.3 mg/dL (8.5-10.1); CHLORIDE 101 mmol/L (98-107); CHOLESTEROL, TOTAL 147 mg/dL (140-239); CREATININE 0.76 mg/dL (0.55-1.02); TRIGLYCERIDES 69 mg/dL (50-200); VLDL CHOLESTEROL 14 mg/dL (0-25)
[2019-03-07 02:51] LABS: CHOL/HDL RATIO 2.8; HDL CHOL % 36 % (28-40); HDL CHOLESTEROL (DIRECT) 53 mg/dL (40-60); LDL CHOLESTEROL,CALCULATED 80 mg/dL (54-169); LDL/HDL RATIO 1.5 (0.5-3.0)
[2019-03-07 03:00] LABS: TROPONIN I 0.174 ng/mL (0.000-0.045)
[2019-03-07] MEDS: ASPIRIN 325 MG TABLET EC PO SCH (05:39)
[2019-03-07] MEDS: LEVOTHYROXINE 75 MCG TABLET PO SCH (05:39)
[2019-03-07 06:45] VITALS: BP 106/62
[2019-03-07] MEDS ORDERED: METOPROLOL TARTRATE 25 MG TABLET PO SCH (07:00)
[2019-03-07] MEDS: OXYBUTYNIN CHLORIDE 5 MG TABLET PO SCH ×2 (09:06→21:14)
[2019-03-07] MEDS: CITALOPRAM 20 MG TABLET PO SCH (09:07)
[2019-03-07] MEDS: FUROSEMIDE 20 MG TABLET PO SCH ×2 (09:08→17:32)
[2019-03-07] MEDS: SENNA/DOCUSATE TABLET PO SCH (09:08)
[2019-03-07] MEDS: PANTOPROZOLE 40MG TABLET PO SCH ×2 (09:08→17:32)
[2019-03-07] MEDS: CARBIDOPA/LEVODOPA 25 MG/100 MG TABLET PO SCH (09:08)
[2019-03-07 14:17] VITALS: BP 91/55
[2019-03-07] MEDS: POLYETHYLENE GLYCOL 17 GM PACKET PO PRN (15:21)
[2019-03-07 17:30] VITALS: BP 105/59
[2019-03-07] MEDS: METOPROLOL TARTRATE 50 MG TABLET PO SCH (17:32)
[2019-03-07] MEDS ORDERED: WARFARIN 5 MG TABLET PO-COUM ONE (18:00)
[2019-03-07] MEDS: ONDANSETRON 2MG/ML, 2ML IVPush PRN (19:54)
[2019-03-07 20:01] VITALS: BP 91/54
[2019-03-08] VITALS (7 sets, daily range): BP systolic 89–98; BP diastolic 50–62
[2019-03-08 06:05] LABS: BASOPHILS # (AUTO) 0.02 x10^3/uL (0-0.1); BASOPHILS % (AUTO) 1 % (0-1); EOSINOPHILS % (AUTO) 8 % (1-7); LYMPHOCYTES # (AUTO) 0.59 x10^3/uL (1-3.4); LYMPHOCYTES % (AUTO) 15 % (22-44); MD NO; MEAN CORPUSCULAR HEMOGLOBIN 28.6 pg (27.0-34.8); MEAN CORPUSCULAR HGB CONC 32.5 g/dL (32.4-35.8); MEAN CORPUSCULAR VOLUME 87.9 fL (80-100); MEAN PLATELET VOLUME 10.5 fL (7.4-10.4); MONOCYTES % (AUTO) 13 % (2-9); NEUTROPHILS # (AUTO) 2.46 x10^3/uL (1.8-6.8); NEUTROPHILS % (AUTO) 63 % (42-75); PLATELET COUNT 151 x10^3/uL (130-400); RED BLOOD COUNT 3.18 x10^6/uL (3.82-5.3); RED CELL DISTRIBUTION WIDTH 17.4 % (9.6-15.2)
[2019-03-08 06:08] LABS: INTERNATIONAL NORMALIZED RATIO 1.82 (0.93-1.1); PROTHROMBIN TIME 18.7 Seconds (9.6-11.5)
[2019-03-08 06:15] LABS: CHLORIDE 99 mmol/L (98-107)
[2019-03-08] MEDS: ASPIRIN 325 MG TABLET EC PO SCH (06:17)
[2019-03-08] MEDS: METOPROLOL TARTRATE 50 MG TABLET PO SCH ×3 (06:17→17:35)
[2019-03-08] MEDS: LEVOTHYROXINE 75 MCG TABLET PO SCH (06:18)
[2019-03-08 06:26] LABS: ALANINE AMINOTRANSFERASE 19 U/L (12-78); ALBUMIN 3.3 g/dL (3.4-5.0); ALKALINE PHOSPHATASE 64 U/L (45-117); ANION GAP 4 mmol/L (5-15); BILIRUBIN,TOTAL 0.7 mg/dL (0.2-1.0); CALCIUM 8.7 mg/dL (8.5-10.1); CREATININE 0.95 mg/dL (0.55-1.02); TOTAL PROTEIN 5.9 g/dL (6.4-8.2)
[2019-03-08] MEDS: CARBIDOPA/LEVODOPA 25 MG/100 MG TABLET PO SCH (08:18)
[2019-03-08] MEDS: CITALOPRAM 20 MG TABLET PO SCH (08:18)
[2019-03-08] MEDS: POLYETHYLENE GLYCOL 17 GM PACKET PO PRN (08:18)
[2019-03-08] MEDS: OXYBUTYNIN CHLORIDE 5 MG TABLET PO SCH ×2 (08:18→20:11)
[2019-03-08] MEDS: SENNA/DOCUSATE TABLET PO SCH (08:19)
[2019-03-08] MEDS: FUROSEMIDE 20 MG TABLET PO SCH ×2 (08:19→20:11)
[2019-03-08] MEDS: PANTOPROZOLE 40MG TABLET PO SCH ×2 (08:28→15:40)
[2019-03-08] MEDS ORDERED: MAGNESIUM CITRATE 300ML ORAL SOL PO ONE (10:00)
[2019-03-08] MEDS: DIGOXIN 0.125 MG TABLET PO SCH (15:40)
[2019-03-08] MEDS ORDERED: WARFARIN 5 MG TABLET PO-COUM ONE (18:00)
[2019-03-08] MEDS: ONDANSETRON 2MG/ML, 2ML IVPush PRN (19:26)
[2019-03-09 01:08] VITALS: BP 98/61
[2019-03-09 05:43] VITALS: BP 98/62
[2019-03-09] MEDS: ASPIRIN 325 MG TABLET EC PO SCH (05:45)
[2019-03-09] MEDS: LEVOTHYROXINE 75 MCG TABLET PO SCH (05:45)
[2019-03-09] MEDS: METOPROLOL TARTRATE 50 MG TABLET PO SCH (05:45)
[2019-03-09 06:22] VITALS: BP 111/70
[2019-03-09 06:57] LABS: INTERNATIONAL NORMALIZED RATIO 2.22 (0.93-1.1); PROTHROMBIN TIME 22.6 Seconds (9.6-11.5)
[2019-03-09 07:01] LABS: ALBUMIN 3.4 g/dL (3.4-5.0); ANION GAP 5 mmol/L (5-15); CALCIUM 9.1 mg/dL (8.5-10.1); CHLORIDE 98 mmol/L (98-107)
[2019-03-09 07:05] LABS: ALANINE AMINOTRANSFERASE 18 U/L (12-78); ALKALINE PHOSPHATASE 67 U/L (45-117); BILIRUBIN,TOTAL 0.5 mg/dL (0.2-1.0); CREATININE 1.04 mg/dL (0.55-1.02); TOTAL PROTEIN 6.3 g/dL (6.4-8.2)
[2019-03-09] MEDS: CARBIDOPA/LEVODOPA 25 MG/100 MG TABLET PO SCH (08:27)
[2019-03-09] MEDS: CITALOPRAM 20 MG TABLET PO SCH (08:27)
[2019-03-09] MEDS: OXYBUTYNIN CHLORIDE 5 MG TABLET PO SCH (08:27)
[2019-03-09] MEDS: SENNA/DOCUSATE TABLET PO SCH (08:27)
[2019-03-09] MEDS: DIGOXIN 0.125 MG TABLET PO SCH (08:27)
[2019-03-09] MEDS: PANTOPROZOLE 40MG TABLET PO SCH (08:41)
[2019-03-09] MEDS ORDERED: FUROSEMIDE 20 MG TABLET PO SCH (09:00)
[2019-03-09] MEDS ORDERED: ACET250T2 PO (12:07)
[2019-03-09] MEDS ORDERED: METO50TA82 PO (12:07)
[2019-03-09] MEDS ORDERED: DIGO125T PO (12:07)
[2019-03-09 13:44] VITALS: BP 93/56
[2019-03-09] MEDS ORDERED: WARFARIN 2.5 MG TABLET PO-COUM ONE (18:00)
== END 2019-03-09 16:00 | disposition home health service (06) | DRG 175 ==
LOC: ED 18:58 → EDIP 19:00 → 5SO 20:24 → DCLOUNGE 03-09 15:40
PROVIDERS: ADMIT Family Medicine; ATTEND Family Medicine
DX: I26.99 Other pulmonary embolism without acute cor pulmonale (principal); I82.0 Budd-Chiari syndrome; I50.23 Acute on chronic systolic (congestive) heart failure; I82.220 Acute embolism and thrombosis of inferior vena cava; I13.0 Hypertensive heart and chronic kidney disease with heart failure and stage 1 through stage 4 chronic kidney disease, or unspecified chronic kidney disease; D68.69 Other thrombophilia; E87.3 Alkalosis; I24.8 Other forms of acute ischemic heart disease; I27.20 Pulmonary hypertension, unspecified; I48.91 Unspecified atrial fibrillation; D64.9 Anemia, unspecified; E03.9 Hypothyroidism, unspecified; F32.9 Major depressive disorder, single episode, unspecified; G20 Parkinson's disease; I07.1 Rheumatic tricuspid insufficiency; N18.3 Chronic kidney disease, stage 3 (moderate); I25.10 Atherosclerotic heart disease of native coronary artery without angina pectoris; R32 Unspecified urinary incontinence; Z79.01 Long term (current) use of anticoagulants; R07.89 Other chest pain; Z86.711 Personal history of pulmonary embolism
CPT/HCPCS: 36415; 71045; 80048; 80053; 80061; 80162; 83735; 83880; 84100; 84484; 85025; 85610; 93005; 93970; 96374; 96375; G0378; J2405; J3480; J7040